=== PATIENT | male | born 1975 | race Caucasian/White ===

== ENCOUNTER 2017-12-27 13:00 | Emergency (ER) | payer OTHER | END 2017-12-27 14:06 | disposition home or self-care (01) | LOC: SCSER 13:00 | DX: L03.114 Cellulitis of left upper limb (principal); S60.511A Abrasion of right hand, initial encounter; F32.9 Major depressive disorder, single episode, unspecified; F17.210 Nicotine dependence, cigarettes, uncomplicated; X58.XXXA Exposure to other specified factors, initial encounter | CPT/HCPCS: 99283 ==